=== PATIENT | female | born 1965 | race Caucasian/White ===

== ENCOUNTER 2019-11-14 09:23 | Emergency (ER) | payer MEDICAID ==
[~2019-11-14] VITALS: Ht 165.1 cm; Wt 59.0 kg
--- NOTE | 2019-11-14 10:00 | NUR ---
pt to room from lobby
[2019-11-14 10:44] LABS: BASOPHILS # (AUTO) 0.04 x10^3/uL (0-0.1); BASOPHILS % (AUTO) 0 % (0-1); EOSINOPHILS # (AUTO) 1.13 x10^3/uL (0-0.4); EOSINOPHILS % (AUTO) 13 % (1-7); LYMPHOCYTES # (AUTO) 2.48 x10^3/uL (1-3.4); LYMPHOCYTES % (AUTO) 29 % (22-44); MD NO; MEAN CORPUSCULAR HEMOGLOBIN 32.1 pg (27.0-34.8); MEAN CORPUSCULAR HGB CONC 33.5 g/dL (32.4-35.8); MEAN CORPUSCULAR VOLUME 95.9 fL (80-100); MEAN PLATELET VOLUME 8.4 fL (7.4-10.4); MONOCYTES # (AUTO) 0.57 x10^3/uL (0.2-0.8); MONOCYTES % (AUTO) 7 % (2-9); NEUTROPHILS # (AUTO) 4.43 x10^3/uL (1.8-6.8); NEUTROPHILS % (AUTO) 51 % (42-75); PLATELET COUNT 318 x10^3/uL (130-400); RED BLOOD COUNT 4.25 x10^6/uL (3.82-5.3); RED CELL DISTRIBUTION WIDTH 13.8 % (9.6-15.2)
[2019-11-14 10:55] LABS: ALBUMIN 3.9 g/dL (3.4-5.0); ANION GAP 8 mmol/L (5-15); CALCIUM 8.9 mg/dL (8.5-10.1); CHLORIDE 109 mmol/L (98-107)
[2019-11-14 11:04] LABS: ALANINE AMINOTRANSFERASE 22 U/L (12-78); ALKALINE PHOSPHATASE 61 U/L (45-117); BILIRUBIN,TOTAL 0.5 mg/dL (0.2-1.0); CREATININE 0.82 mg/dL (0.55-1.02); TOTAL PROTEIN 7.8 g/dL (6.4-8.2); TROPONIN I < 0.015 ng/mL (0.000-0.045)
[2019-11-14 11:11] VITALS: BP 125/84
--- NOTE | 2019-11-14 11:15 | NUR ---
PT PRESENTS TO ED WITH C/O BILATERAL CHEST PRESSURE LEVEL 8/10, SOB, AND COUGH SINCE 05/2019. PT STATES PRESSURE WORSE WHEN LYING DOWN. EKG TAKEN IN TRIAGE. ALL MONITORS IN PLACE .PT A&O, RESPS EVEN ADN UNLABORED, NADN. 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 ALL RESULTS BACK, CHART UP FOR RECHECK, AWAITING MD AND DISPO.
--- NOTE | 2019-11-14 13:00 | NUR ---
upon time of discharge, this RN noted swelling, bruising and scant leakage from PIV site to right upper arm. electrophysiology tech Ebonie called to inquire, per electrophysiology tech, no s/sx IV infiltration was noted at time of scan, and good image enhanced by contrast was obtained. OSCAR Mosqueda notified, to assess PIV site. PIV dc'd with tip intact. Per electrophysiology tech, no formal protocol in place for infiltration with IV contrast, electrophysiology tech advised warm compress.
[2019-11-14] MEDS ORDERED: OMNIPAQUE 350 MG/ML, 100ML BOTTLE ONE (13:01)
== END 2019-11-14 13:28 | disposition home or self-care (01) ==
LOC: ED 10:07
DX: J98.01 Acute bronchospasm (principal); R05 Cough; R06.00 Dyspnea, unspecified; I11.9 Hypertensive heart disease without heart failure; Z87.891 Personal history of nicotine dependence
CPT/HCPCS: 36415; 71045; 71275; 80053; 83880; 84484; 85025; 85379; 93005; 99285; Q9967

== ENCOUNTER 2019-11-26 15:04 | Emergency (ER) | payer MEDICAID ==
[~2019-11-26] VITALS: Ht 165.1 cm; Wt 88.4 kg
[2019-11-26 15:07] VITALS: BP 145/76
--- NOTE | 2019-11-26 15:30 | NUR ---
GUARD DRIVER: PT TO ROOM VIA
[2019-11-26] MEDS ORDERED: OXYcodone/APAP 5/325MG TABLET PO ONE (16:00)
[2019-11-26] MEDS ORDERED: OXYcodone/APAP 5/325MG TABLET ONE (16:01)
== END 2019-11-26 16:42 | disposition home or self-care (01) ==
LOC: ED 16:15
DX: M19.071 Primary osteoarthritis, right ankle and foot (principal); M17.11 Unilateral primary osteoarthritis, right knee; M79.661 Pain in right lower leg; Z87.891 Personal history of nicotine dependence
CPT/HCPCS: 99284

== ENCOUNTER 2020-01-04 13:46 | Emergency (ER) | payer MEDICAID ==
[~2020-01-04] VITALS: Ht 165.1 cm; Wt 89.2 kg
[2020-01-04 13:49] VITALS: BP 141/54
[2020-01-04] MEDS ORDERED: KETOROLAC 30 MG/1 ML IM ONE (14:00)
[2020-01-04] MEDS ORDERED: DIAZEPAM 5 MG TABLET PO ONE (14:00)
[2020-01-04] MEDS ORDERED: KETOROLAC 30 MG/1 ML ONE (14:17)
[2020-01-04] MEDS ORDERED: DIAZEPAM 5 MG TABLET ONE (14:17)
--- NOTE | 2020-01-04 14:26 | NUR ---
MEDS ADMIN PER JUN.
--- NOTE | 2020-01-04 15:06 | NUR ---
NEW ORDER FOR MRI
--- NOTE | 2020-01-04 16:30 | NUR ---
PT BACK FROM MRI
--- NOTE | 2020-01-04 16:46 | NUR ---
ALL RESULTS ARE BACK AT THIS TIME. CHART UP FOR RECHECK.
--- NOTE | 2020-01-04 17:33 | NUR ---
MD AT BEDSIDE TO UPDATE PT ON POC.
== END 2020-01-04 17:45 | disposition home or self-care (01) ==
LOC: ED 14:28
DX: M51.36 Other intervertebral disc degeneration, lumbar region (principal); G89.29 Other chronic pain
CPT/HCPCS: 72110; 72148; 96372; 99284; J1885

== ENCOUNTER 2020-02-27 10:51 | Emergency (ER) | payer MEDICAID ==
[~2020-02-27] VITALS: Ht 165.1 cm; Wt 93.1 kg
--- NOTE | 2020-02-27 10:59 | NUR ---
LAURA KENDRICK, PT WITH C/O DIZZINESS, WEAKNESS AND NAUSEA FOR 1 WEEK. DONNA CP, SOB. BG 109 FOR EMS. PT WITH HX DM, COPD, ASTHMA. PT DENIES RESP SYMPTOMS. DENIES URINARY SYMTPOMS. PT TO BP, CARD MONITOR, CONT PULSE OX Addendum: 02/27/20 at 1154 by AM[facility] CORRECTION- ATIVAN CHANGED TO PO. PT ABLE TO AMBULATE TO BR WITH STEADY GAIT.
[2020-02-27] MEDS ORDERED: SODIUM CHLORIDE FLUSH 10ML SYR IVF ONE (11:30)
[2020-02-27] MEDS ORDERED: SODIUM CHLORIDE 0.9% 1,000ML IVBOLUS ONE (11:30)
[2020-02-27] MEDS ORDERED: LORazepam 2 MG/ML, 1ML IVPush ONE (11:30)
[2020-02-27] MEDS ORDERED: LORazepam 1MG TABLET ONE (11:31)
--- NOTE | 2020-02-27 11:39 | NUR ---
PT DECLINES IV TO BE PLACED, ERP UPDATED, ATIVAN CHANGED TO PT, PT MEDICATED PER MAR. ORTHOSTATICS COMPLETED, NEG.
[2020-02-27 11:42] LABS: MICROSCOPIC INDICATED
[2020-02-27] MEDS ORDERED: LORazepam 1MG TABLET PO ONE (12:00)
[2020-02-27 12:16] LABS: BASOPHILS % (AUTO) 1 % (0-1); EOSINOPHILS % (AUTO) 4 % (1-7); LYMPHOCYTES % (AUTO) 33 % (22-44); MEAN CORPUSCULAR HEMOGLOBIN 31.6 pg (27.0-34.8); MEAN CORPUSCULAR HGB CONC 33.7 g/dL (32.4-35.8); MEAN PLATELET VOLUME 8.1 fL (7.4-10.4); MONOCYTES % (AUTO) 8 % (2-9); NEUTROPHILS % (AUTO) 55 % (42-75); PLATELET COUNT 359 x10^3/uL (130-400); RED BLOOD COUNT 4.56 x10^6/uL (3.82-5.3); RED CELL DISTRIBUTION WIDTH 13.4 % (9.6-15.2)
[2020-02-27 12:18] LABS: MD NO
[2020-02-27 12:25] LABS: ALBUMIN 4.2 g/dL (3.4-5.0); ANION GAP 8 mmol/L (5-15); CALCIUM 9.4 mg/dL (8.5-10.1); CHLORIDE 111 mmol/L (98-107)
[2020-02-27 12:27] VITALS: BP 138/78
--- NOTE | 2020-02-27 12:28 | NUR ---
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
[2020-02-27 12:38] LABS: ALANINE AMINOTRANSFERASE 19 U/L (12-78); ALKALINE PHOSPHATASE 71 U/L (45-117); BILIRUBIN,TOTAL 0.6 mg/dL (0.2-1.0); CREATININE 0.96 mg/dL (0.55-1.02); FREE T4 (FREE THYROXINE) 0.83 ng/dL (0.76-1.46); TOTAL PROTEIN 8.1 g/dL (6.4-8.2)
== END 2020-02-27 13:49 | disposition home or self-care (01) ==
LOC: ED 12:59
DX: N30.00 Acute cystitis without hematuria (principal); R42 Dizziness and giddiness; R55 Syncope and collapse; R53.1 Weakness; E86.0 Dehydration; R07.89 Other chest pain; E03.9 Hypothyroidism, unspecified; I10 Essential (primary) hypertension
CPT/HCPCS: 36415; 71045; 80053; 81001; 84439; 84443; 85025; 87086; 93005; 99285